=== PATIENT | female | born 1955 | race Two or more races ===

== ENCOUNTER 2022-01-21 08:09 | Outpatient (CLI) | payer OTHER | END 2022-01-21 08:20 | disposition home or self-care (01) | LOC: RAD 08:09 | PROVIDERS: ATTEND Otolaryngology Otolaryngology/Facial Plastic Surgery | DX: R59.0 Localized enlarged lymph nodes (principal); J38.4 Edema of larynx; R13.10 Dysphagia, unspecified ==